=== PATIENT | female | born 1995 | race Caucasian/White ===

== ENCOUNTER → 2025-04-29 | Outpatient (CLI) | payer MEDICAID ==
--- NOTE | 2025-04-29 18:24 | US ---
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 Transvaginal grayscale sonographic images of the pelvis were acquired. Doppler imaging: Not performed. FINDINGS: Date of LMP: Nov 2024 EXAM MEASUREMENTS: Uterus: 7.3 x 2.9 x 3.6 cm Endometrial Stripe: 0.5 cm Right Ovary: 3.3 x 2.0 x 2.2 cm Left Ovary: 3.0 x 1.8 x 2.8 cm 1. Uterus: Anteverted wnl 2. Endometrium: wnl 3. Right Ovary: wnl 4. Left Ovary: wnl 5. Bilateral Adnexa: wnl 6. Posterior cul-de-sac: Scant amount of free fluid IMPRESSION: 1. No evidence for acute process. 2. Endometrium within normal limits for thickness. [facility], , 04/29/2025 6:22 PM
== END | disposition home or self-care (01) ==
LOC: RADUSWWP 15:26
PROVIDERS: ATTEND Family Medicine
DX: N91.2 Amenorrhea, unspecified (principal)
CPT/HCPCS: 76830